=== PATIENT | male | born 2000 | race Two or more races ===

== ENCOUNTER 2018-06-02 00:17 | Emergency (ER) | payer SELFPAY ==
[~2018-06-02] VITALS: Ht 182.9 cm; Wt 87.5 kg
[2018-06-02 00:47] VITALS: BP 117/67
[2018-06-02] MEDS ORDERED: diphenhydrAMINE HCL 50 MG/ML VIAL IM ONE (01:00)
== END 2018-06-02 01:35 | disposition home or self-care (01) ==
LOC: ER 00:25
DX: L50.9 Urticaria, unspecified (principal); F10.10 Alcohol abuse, uncomplicated; F17.200 Nicotine dependence, unspecified, uncomplicated; Y90.9 Presence of alcohol in blood, level not specified
CPT/HCPCS: 96372; 99283; A4606; Z7610; J1200